=== PATIENT | male | born 1995 | race Caucasian/White ===

== ENCOUNTER 2017-06-23 15:06 | Emergency (ER) | payer MEDICAID ==
[2017-06-23 15:24] VITALS: BP 123/72; PULSE 75; RESP 18; TEMP 97.8; O2SAT 98
--- NOTE | 2017-06-23 15:31 | ED PDOC ---
Upper Extremity Pain/Injury Chief Complaint (Nursing): Upper Extremity Problem/Injury History Per: Patient Onset/Duration Of Symptoms: Hrs (1) Current Symptoms Are (Timing): Still Present Severity: Moderate Pain Scale Rating Of: 3 Additional Complaint(s): Fell while skateboarding landed right shoulder. Denies head neck or back injury. No LOC. C/o pain right shoulder/scapula. Able to move right arm Past Medical History Vital Signs: Last Vital Signs Temp 97.8 F 06/23/17 15:19 Pulse 75 06/23/17 15:19 Resp 18 06/23/17 15:19 BP 123/72 06/23/17 15:19 Pulse Ox 98 06/23/17 15:19 - Medical History PMH: No Chronic Diseases Comment Only: Chronic Kidney Disease (Denies) - Family History Family History: States: Unknown Family Hx - Home Medications Home Medications: Ambulatory Orders Medication Instructions Recorded traMADol [Ultram] 50 mg PO Q8 #10 tab 06/23/17 - Allergies Allergies/Adverse Reactions: Allergies Allergy/AdvReac Type Severity Reaction Status Date / Time No Known Allergies Allergy Verified 06/23/17 15:19 Review of Systems Musculoskeletal: Positive for: Shoulder Pain. Negative for: Neck Pain, Back Pain Neurological: Negative for: Weakness, Numbness, Headache, Dizziness Physical Exam - Physical Exam Head Exam: Positive for: ATRAUMATIC, NORMAL INSPECTION, NORMOCEPHALIC Skin: Positive for: Normal Color, Warm, DRY Neck: Positive for: Normal, Painless ROM, Supple Pulses-Radial (L): 2+ Pulses-Radial (R): 2+ Back: Positive for: Normal Inspection. Negative for: Vertebral Tenderness Extremity: Positive for: Other (Right shoulder no deformity. Right clavicle tenderness distal 1/3 right clavicle. ROM right shoulder limited by pain in clavicle. Right elbow, no deformity or tenderness. Radial pulse 2/4 bilat.) Neurologic/Psych: Positive for: Alert, Oriented. Negative for: Motor/Sensory Deficits (Able to flex and extend wrist.No sensory deficit distal to fx.) - ECG O2 Sat by Pulse Oximetry: 98 Disposition - Clinical Impression Clinical Impression: Clavicle fracture - Patient ED Disposition Is Patient to be Admitted: No Counseled Patient/Family Regarding: Studies Performed, Diagnosis, Need For Followup, Rx Given - Disposition Referrals: Ashutosh Benedict III, MD [Staff Provider] - Disposition: Routine/Home Disposition Time: 16:09 Condition: FAIR Prescriptions: traMADol [Ultram] 50 mg PO Q8 #10 tab Instructions: Clavicle Fracture (ED) Forms: [employer] ([place])
--- NOTE | 2017-06-23 19:38 | RAD ---
PROCEDURE: Radiographs of the right clavicle. HISTORY: trauma COMPARISON: None. FINDINGS: RIGHT CLAVICLE: There is an oblique vertical fracture through the mid diaphysis of the right clavicle with inferior and proximal distraction of the major distal fracture fragment. No dislocation or separation of the right acromioclavicular joint. Minimal comminution is question at the fracture site. No destructive bony lesion appreciated. JOINTS: Right acromioclavicular and glenohumeral joints are grossly unremarkable. SOFT TISSUES: Grossly unremarkable. OTHER FINDINGS: None. IMPRESSION: Minimally comminuted impacted fracture mid diaphysis right clavicle. No AC joint separation.
--- NOTE | 2017-06-23 19:39 | RAD ---
PROCEDURE: Radiographs of the Right Shoulder HISTORY: trauma COMPARISON: No prior. FINDINGS: BONES: There is no fracture of the scapula or the the proximal humerus. No destructive bony lesions noted. Fracture of the clavicle is identified and is described in greater detail in a separate right clavicle radiograph series 1 2018. Please see separate report. JOINTS: Normal. Glenohumeral and acromioclavicular joints preserved. No osteoarthritis. SOFT TISSUES: Normal. OTHER FINDINGS: None. IMPRESSION: No fracture dislocation of the right scapula or the right humerus. Right clavicular fracture identified. Please see discussion above.
== END 2017-06-23 17:20 | disposition home or self-care (01) ==
LOC: H.ER 15:06
DX: S42.001A Fracture of unspecified part of right clavicle, initial encounter for closed fracture (principal); W19.XXXA Unspecified fall, initial encounter; Y92.89 Other specified places as the place of occurrence of the external cause